=== PATIENT | female | born 1965 | race Caucasian/White ===

== ENCOUNTER 2016-11-20 10:03 | Emergency (ER) | payer BC, OTHER ==
[2016-11-20 11:18] VITALS: BP 149/102; PULSE 66; RESP 18; TEMP 98.8; O2SAT 100
--- NOTE | 2016-11-20 11:40 | UCPHY ---
[id number]/02/17 11:29 HPI/ROS: CHIEF COMPLAINT: Sore throat HISTORY OF PRESENT ILLNESS: 51-year-old immunocompetent female complaining 24 hours of sore throat. No fever no chills no nausea vomiting no cold or flu- like symptoms. No nuchal rigidity. No abdominal pain no nausea no vomiting REVIEW OF SYSTEMS: A ten point review of systems was performed and is negative with the exception of the items mentioned in the HPI PAST MEDICAL & SURGICAL HISTORY: No pertinent medical or surgical history SOCIAL HISTORY: Nonsmoker PHYSICAL EXAM (Prior to examination, patient consented to physical exam, hands were washed and my usual and customary physical exam procedures followed) 1) GENERAL: Well-developed, well-nourished, alert and oriented. Appears to be in no acute distress. 2) HEAD: Normocephalic, atraumatic 3) HEENT: Pupils equal, round, reactive to light bilaterally. Sclera anicteric. Oropharynx: Bilaterally enlarged, symmetrical, exudate of tonsils. No trismus no drooling. Ears bilaterally with normal tympanic membranes. 4) NECK: Full range of motion, no meningeal signs. 5) LUNGS: Clear auscultation bilaterally, no wheezes, no rhonchi, no retractions. 6) HEART: Regular rate and rhythm, no murmur, no heave, no gallop. 7) ABDOMEN: No guarding, no rebound, no focal tenderness,, 8) MUSCULOSKELETAL: No peripheral edema or discoloration. 9) BACK: No CVA tenderness. 10) SKIN: No rash, no petechiae. DIFFERENTIAL DIAGNOSIS: in no particular include but limited to strep pharyngitis, mononucleosis, retropharyngeal abscess, meningitis (Pascale,Calvin Lula) Constitutional: Initial Vital Signs Temperature (C) 37.1 C 11/20/16 11:14 Heart Rate 66 11/20/16 11:14 Respiratory Rate 18 11/20/16 11:14 Blood Pressure 149/102 H 11/20/16 11:14 O2 Sat (%) 100 11/20/16 11:14 O2 Delivery Mode Room Air Allergies/Adverse Reactions: No Known Allergies Allergy (Unverified 11/20/16 11:14) Home Medications: Medication Instructions Recorded Bcp 11/20/16 Penicillin V Potassium [Pen Vk] 500 mg PO Q6 10 Days 11/20/16 oxyCODONE/APAP 5/325 [Percocet 1 tab PO Q6 #10 tab 11/20/16 5/325] Medical Decision Making ED Course/Re-evaluation: High clinical suspicion for strep pharyngitis. Recommended empiric treatment. Doubt retropharyngeal or peritonsillar abscess. She feels comfortable with this plan. Usual and customary pharyngitis precautions provided. (Calvin Ashraf ) Urgent Care PA supervision Physician documentation: The patient was evaluated and managed by the physician floral assistant. My co- signature indicates that I have reviewed this chart and I agree with the findings and plan of care as documented. I am is secondary supervising physician. (Hernandez Salazar) Departure - Departure Disposition: Home, Routine, Self-Care Clinical Impression: Strep pharyngitis Condition: Good Instructions: Strep Throat (ED) Additional Instructions: Return to the ER immediately if you cannot swallow, have drooling, fevers, neck stiffness, cannot open your jaw, or any other symptoms that concern you. Referrals: Manjeet Weston MD [Medical Doctor] - 1-2 days without fail Prescriptions: Penicillin V Potassium [Pen Vk] 500 mg PO Q6 10 Days oxyCODONE/APAP 5/325 [Percocet 5/325] 1 tab PO Q6 #10 tab - PQRS PQRS Measurement: Not applicable (Calvin Ashraf)
== END 2016-11-20 11:49 | disposition home or self-care (01) ==
LOC: CED 10:03
DX: J02.0 Streptococcal pharyngitis (principal)
CPT/HCPCS: 87880-PO; 99214-PO; G0463-PO